=== PATIENT | male | born 1985 | race African-American/Black ===

== ENCOUNTER 2018-03-02 09:37 | Emergency (ER) | payer BC ==
[2018-03-02] MEDS ORDERED: Ibuprofen 200 MG TAB ONE (10:27)
[2018-03-02] MEDS ORDERED: Lidocaine 5% Patch TD SCH (10:45)
== END 2018-03-02 11:24 | disposition home or self-care (01) ==
LOC: ERS 09:37
DX: M54.5 Low back pain (principal); F17.210 Nicotine dependence, cigarettes, uncomplicated
CPT/HCPCS: 99283